=== PATIENT | male | born 1990 | race Caucasian/White ===

== ENCOUNTER 2019-05-29 16:53 | Emergency (ER) | payer MEDICAID ==
[~2019-05-29] VITALS: Ht 167.6 cm; Wt 89.0 kg
[2019-05-29 16:56] VITALS: BP 111/67
[2019-05-29 17:25] LABS: BASOPHILS # (AUTO) 0.03 x10^3/uL (0-0.1); BASOPHILS % (AUTO) 0 % (0-1); EOSINOPHILS # (AUTO) 0.12 x10^3/uL (0-0.4); EOSINOPHILS % (AUTO) 2 % (1-7); LYMPHOCYTES # (AUTO) 1.27 x10^3/uL (1-3.4); LYMPHOCYTES % (AUTO) 16 % (22-44); MD NO; MEAN CORPUSCULAR HEMOGLOBIN 30.4 pg (27.5-34.5); MEAN CORPUSCULAR HGB CONC 33.5 g/dL (33.2-36.2); MEAN CORPUSCULAR VOLUME 90.8 fL (81-97); MEAN PLATELET VOLUME 9.8 fL (7.4-10.4); MONOCYTES # (AUTO) 0.85 x10^3/uL (0.2-0.8); MONOCYTES % (AUTO) 10 % (2-9); NEUTROPHILS # (AUTO) 5.89 x10^3/uL (1.8-6.8); NEUTROPHILS % (AUTO) 72 % (42-75); PLATELET COUNT 257 x10^3/uL (130-400); RED BLOOD COUNT 4.88 x10^6/uL (4.38-5.82); RED CELL DISTRIBUTION WIDTH 13.6 % (9.4-14.8)
[2019-05-29] MEDS ORDERED: MORPHINE SULFATE 4 MG/ML, 1ML IVPush PRN (17:30)
[2019-05-29] MEDS ORDERED: ONDANSETRON 2MG/ML, 2ML IVPush ONE (17:30)
[2019-05-29] MEDS ORDERED: SODIUM CHLORIDE FLUSH 10ML SYR IVF ONE (17:30)
[2019-05-29 17:39] LABS: ALBUMIN 3.7 g/dL (3.4-5.0); ANION GAP 4 mmol/L (5-15); CALCIUM 8.5 mg/dL (8.5-10.1); CHLORIDE 106 mmol/L (98-107); CREATININE 1.42 mg/dL (0.7-1.3)
[2019-05-29] MEDS ORDERED: ONDANSETRON 2MG/ML, 2ML ONE (17:58)
[2019-05-29] MEDS ORDERED: MORPHINE SULFATE 4 MG/ML, 1ML ONE (17:59)
--- NOTE | 2019-05-29 18:00 | NUR ---
in to medicate pt. pt in imaging.
[2019-05-29 18:15] LABS: MICROSCOPIC INDICATED
[2019-05-29] MEDS ORDERED: OMNIPAQUE 350 MG/ML, 100ML BOTTLE ONE (18:17)
[2019-05-29 18:38] LABS: CULTURE INDICATED? NO
--- NOTE | 2019-05-29 19:29 | NUR ---
Patient/Caregiver given discharge instructions and they have confirmed that they understand the instructions. Patient ambulatory with steady gait.
--- NOTE | 2019-05-29 19:47 | NUR ---
Patient/Caregiver given discharge instructions and they have confirmed that they understand the instructions. Patient ambulatory with steady gait.
== END 2019-05-29 19:51 | disposition home or self-care (01) ==
LOC: ED 18:34
DX: K52.9 Noninfective gastroenteritis and colitis, unspecified (principal); R10.32 Left lower quadrant pain; F17.210 Nicotine dependence, cigarettes, uncomplicated
CPT/HCPCS: 36415; 74177; 80048; 81001; 82040; 85025; 96374; 96375; 99284; J2270; J2405; Q9967

== ENCOUNTER 2019-07-22 18:38 | Emergency (ER) | payer MEDICAID ==
[~2019-07-22] VITALS: Ht 165.1 cm; Wt 92.3 kg
[2019-07-22 18:40] VITALS: BP 132/90
[2019-07-22] MEDS ORDERED: LIDOCAINE 1%-EPI 1:100K, 20ML SQ ONE (19:00)
[2019-07-22] MEDS ORDERED: BUPIVACAINE/PF-EPI 0.25% 1:200K SQ ONE (19:00)
[2019-07-22] MEDS ORDERED: LIDOCAINE 1%-EPI 1:100K, 20ML ONE (19:02)
[2019-07-22] MEDS ORDERED: BUPIVACAINE 0.25% ONE (19:02)
--- NOTE | 2019-07-22 19:05 | NUR ---
MEDS PULLED FOR PROVIDER ADMIN.
--- NOTE | 2019-07-22 19:13 | NUR ---
Received report, assumed patient care. Patient has received dental block. Awaiting labs and prescriptions and disposition
== END 2019-07-22 19:52 | disposition home or self-care (01) ==
LOC: ED 19:09
DX: K02.9 Dental caries, unspecified (principal); K08.89 Other specified disorders of teeth and supporting structures; F17.200 Nicotine dependence, unspecified, uncomplicated
CPT/HCPCS: 64400; 99283; 99284

== ENCOUNTER 2020-10-26 22:14 | Emergency (ER) | payer MEDICAID ==
[~2020-10-26] VITALS: Ht 170.2 cm; Wt 91.9 kg
[2020-10-26] MEDS ORDERED: LORazepam 1MG TABLET ONE (22:40)
[2020-10-26] MEDS ORDERED: ALBUTEROL/IPRATROPIUM 2.5MG/0.5MG, 3 ML ONE (22:41)
[2020-10-26] MEDS ORDERED: ALBUTEROL SULFATE 2.5 MG/3 ML NPPB ONE (23:00)
[2020-10-26] MEDS ORDERED: LORazepam 1MG TABLET PO ONE (23:00)
--- NOTE | 2020-10-26 23:00 | NUR ---
PT PRESENTS TO ER FOR AN ASTHMA ATTACK, PT SYRIAN SPEAKING ONLY, THIS RN USED AN [facility]ILY [employer] REGISTRAR WHOSE NAME IS ISABEL AND USER ID WAS [id number], PT STATED THIS STARTED YESTERDAY AND DOES NOT HAVE AN INHALER, PT HAD LABORED BREATHING AND ANXIETY, PT STATED IN [place] "I DONT WANT TO ", MD AT BEDSIDE
--- NOTE | 2020-10-26 23:48 | NUR ---
PT LAYING IN BED, PT FEELING BETTER, PTS BREATHING NOT LABORED ANYMORE, MEDICATIONS GIVEN AND PT STATED HE IS FEELING BETTER, A/OX4, ALL NEEDS IN REACH, CALL LIGHT IN REACH, NAD AT THIS TIME, VSS
[2020-10-27 00:26] VITALS: BP 115/77
== END 2020-10-27 00:28 | disposition home or self-care (01) ==
LOC: ED 22:17
DX: J45.31 Mild persistent asthma with (acute) exacerbation (principal); F41.1 Generalized anxiety disorder; R11.10 Vomiting, unspecified; R06.02 Shortness of breath; R00.0 Tachycardia, unspecified; R10.9 Unspecified abdominal pain; F17.210 Nicotine dependence, cigarettes, uncomplicated
CPT/HCPCS: 71045; 93005; 94640; 99283; J7512; J7613